=== PATIENT | male | born 1960 | race African-American/Black ===

== ENCOUNTER 2020-07-16 22:36 | Emergency (ER) | payer MEDICAID ==
[~2020-07-16] VITALS: Ht 180.3 cm; Wt 114.0 kg
[2020-07-16] MEDS ORDERED: ACETAMINOPHEN 325MG TABLET PO STA (23:37)
[2020-07-16] MEDS ORDERED: CEFTRIAXONE 1 G PREMIX 50 ML IV ONE (23:45)
[2020-07-16] MEDS ORDERED: AZITHROMYCIN 500 MG in DEXT 5% WATER 250 ML IV ONE (23:45)
[2020-07-17 00:07] LABS: BASOPHILS % 1.2 % (0.0-2.0); EOSINOPHILS % 5.4 % (0.0-5.0); HEMATOCRIT. 36.9 % (42.0-52.0); HEMOGLOBIN. 12.3 g/dL (14.0-18.0); LYMPHOCYTES % 31.9 % (20.0-50.0); MEAN CORPUSCULAR HEMOGLOBIN 28.1 pg (28.0-32.0); MEAN CORPUSCULAR VOLUME 84.4 fL (80.0-94.0); MEAN PLATELET VOLUME 7.8 fl (7.4-10.4); MONOCYTES % 5.7 % (2.0-8.0); NEUTROPHILS % 55.8 % (40.0-76.0); PLATELET 275 x1000/uL (130-400); RED BLOOD CELL COUNT 4.37 mill/uL (4.7-6.1); RED CELL DISTRIBUTION WIDTH 14.5 % (11.6-14.6)
[2020-07-17 00:13] LABS: CHLORIDE 104 mEq/L (98-107)
[2020-07-17 02:25] LABS: ETHANOL BLOOD < 10 mg/dL
[2020-07-17 04:02] VITALS: BP 121/79
== END 2020-07-17 04:09 | disposition left against medical advice (07) ==
LOC: ER 22:36 → ENRESERV 07-17 03:45 → CANRESERV 07-17 03:45 → ER 07-17 04:09 → CANBEDREQ 07-17 14:43
DX: R07.89 Other chest pain (principal); R50.9 Fever, unspecified; E11.9 Type 2 diabetes mellitus without complications; E78.00 Pure hypercholesterolemia, unspecified; I10 Essential (primary) hypertension
CPT/HCPCS: 36415; 71045; 80053; 80320; 83605; 83690; 83880; 84484; 85025; 85610; 93005; 96365; 96367; 99291; J0456; J0696; J7060; G0480